=== PATIENT | male | born 1960 ===

== ENCOUNTER 2017-08-20 10:18 | Emergency (ER) | payer SELFPAY ==
[2017-08-20 11:27] VITALS: BP 126/76
--- NOTE | 2017-08-20 12:15 | RAD ---
Indication: Fall, neck injury. 3 views of the cervical spine are reviewed. There is normal vertebral body height and alignment. Disc space narrowing is noted at C5-C6 and C6-C7 with mild ventral osteophyte formation. Spinal canal appears to be intact. IMPRESSION: Degenerative disc disease at C5-C6 and C6-C7.
--- NOTE | 2017-08-20 12:35 | UC ---
Neck Pain HPI - HPI Summary HPI Summary: neck pain x 1 day s/p fall down 4 metal stars injury to right shoulder and neck ? brief loc , no headaches, no n/v, no visual changes or photophobia - History of Current Complaint Chief Complaint: UCUpperExtremity Stated Complaint: BACK/NECK/RIB AREA PAIN-SP FALL Time Seen by Provider: 08/20/17 11:39 Hx Obtained From: Patient Onset/Duration Of Injury/Symptoms: Hours - 3 Mechanism Of Injury: Blunt Trauma - s/p fall Timing: Constant Onset/Duration: Sudden Onset Severity: Moderate Location: Discrete At: - neck and right shoulder Character: Aching Aggravating Factors: Position, Movement Alleviating Factors: Position Associated Signs & Symptoms: Negative: Swelling, Redness, Bruising, Fever, Nuchal Rigity, Weakness, Headache, Paresthesia - Allergies/Home Medications Allergies/Adverse Reactions: Allergies Allergy/AdvReac Type Severity Reaction Status Date / Time Clarithromycin [From Biaxin] Allergy GI Upset Verified 08/20/17 11:28 Penicillins Allergy Hives Verified 08/20/17 11:28 Home Medications: Home Medications Hydroxychloroquine TAB* [Plaquenil TAB*] 200 mg PO DAILY 08/20/17 [History Confirmed 08/20/17] PMH/Surg Hx/FS Hx/Imm Hx - Additional Past Medical History Additional PMH: lupus - Surgical History Surgical History: Yes Surgery Procedure, Year, and Place: Right shoulder x 2 (2017) (1997). Left shoulder (2013). Knee (2001). RIght pink finger. right carpal tunnel (2001) - Family History Known Family History: Negative: Diabetes - Social History Alcohol Use: Rare Substance Use Type: None Smoking Status (MU): Never Smoked Tobacco Review Of Systems Constitutional: Positive: Negative Skin: Positive: Negative Eyes: Positive: Negative ENT: Positive: Negative Respiratory: Positive: Negative Cardiovascular: Positive: Negative All Other Systems Reviewed And Are Negative: No Physical Exam Triage Information Reviewed: Yes Appearance: Well-Appearing, No Pain Distress, Well-Nourished Vital Signs: Initial Vital Signs Temp 98.4 F 08/20/17 11:22 Pulse 56 08/20/17 11:22 Resp 18 08/20/17 11:22 BP 126/76 08/20/17 11:22 Pulse Ox 99 08/20/17 11:22 Vital Signs Reviewed: Yes Eyes: Positive: Conjunctiva Clear ENT: Positive: Normal ENT inspection, Hearing grossly normal, Pharynx normal Neck: Positive: Supple, No Lymphadenopathy, Tenderness @ Respiratory: Positive: Chest non-tender, Lungs clear, Normal breath sounds Cardiovascular: Positive: RRR, No Murmur, Pulses Normal Musculoskeletal: Positive: Strength Intact, ROM Intact, No Edema, Other: - right shoulder : no swelling, no ecchymosis, no tenderness, normal ROM Neck Pain Course/Dx - Differential Dx/Diagnosis Provider Diagnoses: contusion neck. contusion right shoulder. head injury Discharge - Discharge Plan Condition: Stable Disposition: HOME Patient Education Materials: Head Injury (ED), Contusion in Adults (ED) Referrals: Naveed Buck MD [Primary Care Provider] - 5 Days
== END 2017-08-20 12:37 | disposition home or self-care (01) ==
LOC: UCCORT 10:18
DX: S09.90XA Unspecified injury of head, initial encounter (principal); S40.011A Contusion of right shoulder, initial encounter; S10.93XA Contusion of unspecified part of neck, initial encounter; W10.9XXA Fall (on) (from) unspecified stairs and steps, initial encounter; Y93.9 Activity, unspecified; Y92.9 Unspecified place or not applicable
CPT/HCPCS: 72040; 99201; G0463